=== PATIENT | female | born 1985 | race Caucasian/White ===

== ENCOUNTER 2021-12-15 18:55 | Emergency (ER) | payer OTHER ==
[2021-12-15 19:37] LABS: BASOPHIL 0.6 % (0-2); EOSINOPHIL 3.1 % (0-5); HCT 35.7 % (37.0-47.0); LYMPHOCYTE 28.7 % (15-48); MCH 25.3 pg (25.0-31.0); MCHC 30.8 g/dL (32.0-36.0); MCV 82.3 fL (78.0-100.0); MONOCYTE 6.8 % (0-12); MPV 9.7 fL (6.0-9.5); NEUTROPHIL 59.3 % (41-80); NRBC 0; PLT 383 K/uL (150-400); RBC 4.34 M/uL (4.20-5.40); RDW 18.8 % (11.5-14.0); WBC 9.4 K/uL (4.0-10.5)
[2021-12-15 19:45] LABS: INR 0.99 (0.9-1.2); PROTHROMBIN TIME 12.8 SECONDS (11.9-13.9); PTT 27.7 SECONDS (24.9-34.6)
[2021-12-15 19:47] LABS: BUN/CREAT RATIO (CALC) 9.8 RATIO; CREATININE 1.43 mg/dL (0.51-0.95)
[2021-12-16] MEDS ORDERED: NARCAN4 MG IN (05:54)
[2021-12-16] MEDS ORDERED: OXY-IR 5MG5 MG PO (05:54)
== END 2021-12-16 07:11 | disposition home or self-care (01) ==
LOC: FER 18:55
PROVIDERS: Emergency Medicine
DX: R04.0 Epistaxis (principal); I10 Essential (primary) hypertension; F17.200 Nicotine dependence, unspecified, uncomplicated
CPT/HCPCS: 36415; 70450; 80048; 85025; 85610; 85730; 86850; 86900; 86901; 96374; 96375; 96376; C9046; J1170; J1642; J2405; J2550; J7030; Q9967